=== PATIENT | male | born 1975 | race Hispanic/Latino ===

== ENCOUNTER → 2018-03-05 | Outpatient (CLI) | payer OTHER | END | disposition home or self-care (01) | LOC: RAH 14:13 | PROVIDERS: ATTEND Family Medicine | DX: S83.272A Complex tear of lateral meniscus, current injury, left knee, initial encounter (principal); M17.12 Unilateral primary osteoarthritis, left knee; F42.8 Other obsessive-compulsive disorder; X58.XXXA Exposure to other specified factors, initial encounter; Y93.89 Activity, other specified; Y92.89 Other specified places as the place of occurrence of the external cause; Y99.8 Other external cause status | CPT/HCPCS: 73721 ==

== ENCOUNTER 2018-04-09 09:15 | Day surgery (SDC) | payer OTHER ==
[2018-04-09] VITALS (13 sets, daily range): BP systolic 109–126; BP diastolic 65–95
[~2018-04-09] VITALS: Ht 188 cm; Wt 138.8 kg
[2018-04-09] MEDS ORDERED: LACTATED RINGERS 1000ML 1,000 ML IV ONE (10:26)
[2018-04-09] MEDS: CEFAZOLIN SODIUM 1 GM VIAL ONE ×2 (10:48→13:25)
[2018-04-09] MEDS ORDERED: MIDAZOLAM HCL 1 MG/ML 2ML VIAL ONE (13:09)
[2018-04-09] MEDS ORDERED: FENTANYL CITRATE PF 50 MCG/1 ML 2ML VIAL ONE (13:09)
[2018-04-09] MEDS ORDERED: DURAMORPH PF1 MG/ML 10ML AMP IV ONE (13:12)
[2018-04-09] MEDS ORDERED: BUPIVACAINE/EPI/PF 0.25% 50 ML VIAL ONE (13:12)
[2018-04-09] MEDS ORDERED: DEXAMETHASONE SOD PHOSPHATE 4 MG/ML 1ML VIAL ONE (13:42)
[2018-04-09] MEDS ORDERED: PROPOFOL 10 MG/ML 20ML VIAL IV ONE (13:43)
[2018-04-09] MEDS ORDERED: ONDANSETRON HCL 4 MG/2 ML VIAL ONE (13:43)
[2018-04-09] MEDS ORDERED: SUCCINYLCHOLINE 200MG/10ML SYR ONE (13:43)
[2018-04-09] MEDS ORDERED: GLYCOPYRROLATE 1 MG/5 ML SYRINGE ONE (13:44)
[2018-04-09] MEDS ORDERED: NEOSTIGMINE 5MG/5ML SYR IV ONE (13:44)
[2018-04-09] MEDS ORDERED: MEPERIDINE-PF 25 MG/ML SYG ONE (14:00)
[2018-04-09] MEDS ORDERED: RACEPINEPHRINE HCL 2.25% 0.5 ML NEB SOLN ONE (14:26)
[2018-04-09] MEDS ORDERED: KETOROLAC TROMETHAMINE 30MG/ML ONE (14:50)
== END 2018-04-09 15:50 | disposition home or self-care (01) ==
LOC: SUH 09:15 → DAH 09:15 → SUH 15:50
PROVIDERS: ATTEND Orthopaedic Surgery
DX: S72.432A Displaced fracture of medial condyle of left femur, initial encounter for closed fracture (principal); X58.XXXA Exposure to other specified factors, initial encounter; Y93.9 Activity, unspecified; Y92.89 Other specified places as the place of occurrence of the external cause; Y99.9 Unspecified external cause status; M23.201 Derangement of unspecified lateral meniscus due to old tear or injury, left knee; E66.01 Morbid (severe) obesity due to excess calories
CPT/HCPCS: 29879; 29881; 94640; A4450; A4510; A4649 ×3; A4930; A6223; J0330; J0690; J1100; J1885; J2175; J2250; J2274; J2405; J2704; J2710; J3010; J3490 ×2; J7120 ×2